=== PATIENT | male | born 1985 | race African-American/Black ===

== ENCOUNTER 2023-10-12 21:07 | Inpatient (IN) | payer OTHER ==
[2023-10-12 21:50] VITALS: BMI 19.3
[2023-10-13] MEDS ORDERED: MAGNESIUM HYDROX 2400MG/30ML ORAL SUSPENSION 30 ML CUP PO PRN (01:37)
[2023-10-13] MEDS ORDERED: ONDANSETRON *ODT* 4 MG TABLET SL PRN (01:37)
[2023-10-13] MEDS ORDERED: hydrOXYzine PAMOATE 25 MG CAPSULE (FP) PO PRN (01:37)
[2023-10-13] MEDS ORDERED: BISMUTH SUBSALICYLATE 524 MG/30 ML PO PRN (01:37)
[2023-10-13] MEDS ORDERED: NALOXONE HCL 0.4 MG/ML VIAL IM PRN (01:37)
[2023-10-13] MEDS ORDERED: NICOTINE POLACRILEX 2 MG GUM BUC PRN (01:37)
[2023-10-13] MEDS ORDERED: DICYCLOMINE HCL 10 MG CAPSULE PO PRN (01:37)
[2023-10-13] MEDS ORDERED: IBUPROFEN 400 MG TABLET (FP) PO PRN (01:37)
[2023-10-13] MEDS ORDERED: LOPERAMIDE HCL 2 MG CAPSULE PO PRN (01:37)
[2023-10-13] MEDS ORDERED: MAG HYDROX/AL HYDROX/SIMETH 30 ML UNIT-DOSE CUP PO PRN (01:37)
[2023-10-13] MEDS ORDERED: BENZOCAINE/MENTHOL (CHLORASEPTIC ) LOZENGE MM PRN (01:37)
[2023-10-13] MEDS ORDERED: guaiFENesin 600 MG TABLET.ER (FP) PO PRN (01:37)
[2023-10-13] MEDS ORDERED: ACETAMINOPHEN 325 MG TABLET (FP) PO PRN (01:37)
[2023-10-13] MEDS ORDERED: NALOXONE (NARCAN) HCL 4 MG/0.1 ML SPRAY NS PRN (01:37)
[2023-10-13] MEDS ORDERED: POLYETHYLENE GLYCOL (HEALTHYLAX) 3350 17 GM PACKET PO PRN (01:37)
[2023-10-13] MEDS ORDERED: BENZONATATE 200 MG CAPSULE PO PRN (01:37)
[2023-10-13] MEDS ORDERED: chlordiazePOXIDE HCL 25 MG CAPSULE PO PRN (01:41)
[2023-10-13] MEDS: METHOCARBAMOL 500 MG TABLET PO PRN (02:39)
[2023-10-13] MEDS: chlordiazePOXIDE HCL 25 MG CAPSULE PO SCH (05:51)
[2023-10-13] MEDS: BICTEGRAV/EMTRICIT/TENOFOV (BIKTARVY) 50-200-25 MG TABLET PO SCH (07:27)
[2023-10-13] MEDS: PRENATAL VITAMINS W/ FOLIC ACID TABLET (FP) PO SCH (10:23)
[2023-10-13] MEDS: MULTIVITAMINS (DAILY MVI) TABLET (FP) PO SCH (10:23)
[2023-10-13] MEDS: NICOTINE 14 MG/24 HOURS TOPICAL PATCH TD SCH (10:23)
[2023-10-13] MEDS: ASCORBIC ACID 500 MG TABLET (FP) PO SCH (10:23)
[2023-10-13] MEDS: ASPIRIN COATED 81 MG TABLET.EC PO SCH (14:20)
[2023-10-13] MEDS: levETIRAcetam 250 MG TABLET PO SCH (14:20)
[2023-10-13] MEDS: THIAMINE 100 MG TABLET PO SCH (22:09)
[2023-10-13] MEDS: MELATONIN 5 MG TABLETS PO SCH (22:11)
[2023-10-14] MEDS: IBUPROFEN 600 MG TABLET (FP) PO PRN (03:07)
[2023-10-14] MEDS: chlordiazePOXIDE HCL 25 MG CAPSULE PO SCH (05:24)
[2023-10-14] MEDS: ASPIRIN COATED 81 MG TABLET.EC PO SCH (11:40)
[2023-10-14] MEDS: levETIRAcetam 250 MG TABLET PO SCH (11:40)
[2023-10-14] MEDS: MULTIVITAMINS (DAILY MVI) TABLET (FP) PO SCH (11:42)
[2023-10-14 15:14] LABS: HEMATOCRIT 39.2 % (35.4-49); HEMOGLOBIN 12.8 GM/dL (11.7-16.9); MCH 31.2 pg (25.7-33.7); MCHC 32.7 g/dl (32.0-35.9); MEAN CELL VOLUME 95.3 fl (80-96); MEAN PLT VOLUME 8.1 fl (7.5-11.1); PLATELET COUNT 253 10^3/uL (134-434); RBC 4.11 M/mm3 (4.00-5.60); WHITE BLOOD COUNT 5.3 K/mm3 (4.0-10.0)
[2023-10-14 15:20] LABS: POTASSIUM 3.6 mmol/L (3.5-5.1)
[2023-10-14 15:26] LABS: ALBUMIN 2.5 g/dl (3.4-5.0); CALCIUM 8.2 mg/dL (8.5-10.1)
[2023-10-14 15:27] LABS: BLOOD UREA NITROGEN 13.2 mg/dL (7-18)
[2023-10-14 15:30] LABS: CREATININE 0.9 mg/dL (0.55-1.3)
[2023-10-14 15:31] LABS: TOT PROT 7.3 g/dl (6.4-8.2)
[2023-10-14 15:32] LABS: BILIRUBIN,TOTAL 0.2 mg/dL (0.2-1)
[2023-10-15] MEDS ORDERED: chlordiazePOXIDE HCL 10 MG CAPSULE PO PRN
[2023-10-15] MEDS: chlordiazePOXIDE HCL 10 MG CAPSULE PO SCH (05:33)
[2023-10-15 09:55] VITALS: RESP 18
[2023-10-15 11:58] LABS: POTASSIUM 4.1 mmol/L (3.5-5.1)
[2023-10-15 12:02] LABS: BLOOD UREA NITROGEN 13.3 mg/dL (7-18); CALCIUM 8.6 mg/dL (8.5-10.1)
[2023-10-15 12:06] LABS: CREATININE 0.9 mg/dL (0.55-1.3)
[2023-10-15 12:11] LABS: BASO % 0.8 % (0-2.0); EOS % 6.2 % (0-4.5); HEMATOCRIT 39.1 % (35.4-49); LYMPH % 30.4 % (8-40); MCH 31.8 pg (25.7-33.7); MCHC 33.3 g/dl (32.0-35.9); MEAN CELL VOLUME 95.4 fl (80-96); MONO % 11.5 % (3.8-10.2); NEUT % 51.1 % (42.8-82.8); PLATELET COUNT 257 10^3/uL (134-434); RDW 14.7 % (11.9-15.9); WHITE BLOOD COUNT 4.9 K/mm3 (4.0-10.0)
[2023-10-15] MEDS: amLODIPine BESYLATE 10 MG TABLET (FP) PO SCH (12:34)
[2023-10-15 13:14] VITALS: BP 173/113; PULSE 67; TEMP 97.7
[2023-10-16] MEDS ORDERED: chlordiazePOXIDE HCL 10 MG CAPSULE PO SCH (05:00)
[2023-10-17] MEDS ORDERED: chlordiazePOXIDE HCL 10 MG CAPSULE PO ONE (05:00)
== END 2023-10-15 17:19 | disposition left against medical advice (07) | DRG 770 ==
LOC: YASAS 21:07 → EDBD 10-13 02:12 → Y6N 10-13 02:12
PROVIDERS: ADMIT Allergy & Immunology; ATTEND Surgery
PROC: HZ2ZZZZ Detoxification Services for Substance Abuse Treatment (ICD-10-PCS; principal; 2023-10-13)
DX: F10.230 Alcohol dependence with withdrawal, uncomplicated (principal); F14.23 Cocaine dependence with withdrawal; F12.20 Cannabis dependence, uncomplicated; F17.210 Nicotine dependence, cigarettes, uncomplicated; F41.9 Anxiety disorder, unspecified; Z21 Asymptomatic human immunodeficiency virus [HIV] infection status; Z79.899 Other long term (current) drug therapy; D57.3 Sickle-cell trait; G40.909 Epilepsy, unspecified, not intractable, without status epilepticus; I25.10 Atherosclerotic heart disease of native coronary artery without angina pectoris; I10 Essential (primary) hypertension; Z95.5 Presence of coronary angioplasty implant and graft; Z88.0 Allergy status to penicillin
CPT/HCPCS: 36415; 80048; 80053; 80177; 80305; 80307; 85025; 85027; 86593; 86780; 93005; 93010